=== PATIENT | female | born 1960 | race Caucasian/White ===

== ENCOUNTER 2021-12-01 04:58 | Emergency (ER) | payer BC ==
[~2021-12-01] VITALS: Ht 175.3 cm; Wt 51.6 kg
--- NOTE | 2021-12-01 05:08 | NUR ---
DR GOTTI AWARE OF PT. WHEN ASKED ONLY REQUESTS ORDER FOR 1 LITER OF ON NS FLUIDS FOR LOW BP. NO LABS OR IMAGING ORDERS AT THIS POINT.
[2021-12-01] MEDS ORDERED: normal saline 1000ml 1,000 ML IV ONE (05:20)
--- NOTE | 2021-12-01 06:10 | NUR ---
SPOKE TO DR BLOUNT CONCERNING PT. PT HAS ACCIDENTALLY REMOVED HER 22 GAUGE IV AND MULTIPLE RNS HAVE BEEN UNABLE TO PLACE ANOTHER LINE. PT RECIEVED ONLY HALF OF HER 1 LITER NS BOLUS. ADVISED DR BLOUNT ON WHETHER A CENTRAL LINE COULD BE CONSIDERED. HE SUGGESTED SEEING WHETHER THERE IS A PICC LINE RN AVAILABLE. WEB CONTENT WRITER ALLY IS LOOKING INTO POSSIBILITY OF HAVING A PICC LINE RN COME IN. I ALSO REQUESTED LAB ORDERS ONCE WE ARE ABLE TO OBTAIN BLOODWORK.
[2021-12-01 06:49] LABS: CLARITY,URINE TURBID (Clear); GLUCOSE, URINE NEGATIVE (Neg); KETONES,URINE NEGATIVE (Neg); LEUKOCYTE ESTERASE ,URINE MODERATE (Neg); NITRITES, URINE NEGATIVE (Neg); OCCULT BLOOD,URINE NEGATIVE (Neg); PROTEIN,URINE 30 mg/dl (Neg); UROBILINOGEN,URINE 0.2 E.U/dL (0.2-1.0)
[2021-12-01 06:55] LABS: UA COLLECTION TYPE STRAIGHT CATH
[2021-12-01 06:56] LABS: COLOR,URINE STRAW (Yellow)
[2021-12-01 06:57] LABS: SQUAMOUS EPITHELIAL CELL,UR FEW /LPF (FEW); TRANSITIONAL EPI CELLS,URINE MODERATE /HPF
[2021-12-01 06:58] LABS: BACTERIA,URINE 4+ /HPF (Neg); WBC,URINE TNTC /HPF (0-4)
[2021-12-01 06:59] LABS: RBC,URINE 0-2 /HPF (0-2)
[2021-12-01 07:06] LABS: BASOPHILS % (AUTO) 0 % (0-1); EOSINOPHILS % (AUTO) 0.1 % (0-6); HEMATOCRIT 31.9 % (35.0-45.0); HEMOGLOBIN 9.9 g/dl (12.0-16.0); LYMPHOCYTES # (AUTO) 0.7 X10'3 (1.1-4.8); LYMPHOCYTES % (AUTO) 3.9 % (21-51); MEAN CORPUSCULAR HEMOGLOBIN 22.3 PG (27.0-31.0); MEAN CORPUSCULAR VOLUME 72.1 FL (78-98); MEAN PLATELET VOLUME 7.9 FL (7.4-10.4); MONOCYTES # (AUTO) 0.9 X10'3 (0-0.9); MONOCYTES % (AUTO) 5.2 % (2-12); NEUTROPHILS # (AUTO) 16.2 X10'3 (1.8-7.7); NEUTROPHILS % (AUTO) 90.8 % (42-75); PLATELET COUNT 499 X10'3 (140-440); RED BLOOD COUNT 4.42 X10'6 (4.20-5.60); RED CELL DISTRIBUTION WIDTH 21.2 % (11.5-14.5); WHITE BLOOD COUNT 17.8 X10'3 (4.5-11.0)
[2021-12-01 07:29] LABS: ALANINE AMINOTRANSFERASE 24 U/L (12-78); ALBUMIN 2.8 G/DL (3.4-5.0); ALBUMIN/GLOBULIN RATIO 0.5 (1.1-1.5); ALKALINE PHOSPHATASE 115 IU/L (46-116); ASPARTATE AMINO TRANSFERASE 28 U/L (10-37); BILIRUBIN,TOTAL 0.4 MG/DL (0.1-1.0); BLOOD UREA NITROGEN 51 MG/DL (7-18); BUN/CREATININE RATIO 18.1 (6.6-38.0); CALCIUM 9.1 MG/DL (8.5-10.1); CHLORIDE 81 MMOL/L (99-107); CREATININE 2.82 MG/DL (0.40-0.90); GLUCOSE 272 MG/DL (70-104); SODIUM 133 MMOL/L (135-145); TOTAL PROTEIN 8.5 G/DL (6.4-8.2); eGFR 17 ML/MIN
[2021-12-01] MEDS ORDERED: cefTRIAXone 1g/NS 100ml IVPB 100 ML IV ONE (07:30)
[2021-12-01 07:32] LABS: ANION GAP 7 (8-16); POTASSIUM 3.3 MMOL/L (3.5-5.1)
[2021-12-01 08:20] LABS: ANISOCYTOSIS 3+; MICROCYTOSIS 1+; PLATELET ESTIMATE INCREASED; STOMATOCYTES 2+
[2021-12-01] MEDS ORDERED: CEPH-585 PO (08:23)
[2021-12-01 09:34] VITALS: BP 103/77
== END 2021-12-01 11:02 | disposition home or self-care (01) ==
LOC: ER 04:58
DX: N39.0 Urinary tract infection, site not specified (principal); E86.0 Dehydration; N18.4 Chronic kidney disease, stage 4 (severe); E11.22 Type 2 diabetes mellitus with diabetic chronic kidney disease; Z87.11 Personal history of peptic ulcer disease; Z79.2 Long term (current) use of antibiotics
CPT/HCPCS: 36415; 71045; 80053; 81001; 83605; 84145; 84484; 85008; 85025; 87088; 87186; 96365; 99284; J0696; J7030